=== PATIENT | female | born 1935 | race Caucasian/White ===

== ENCOUNTER 2019-08-06 17:30 | Emergency (ER) | payer MEDICARE, OTHER, SELFPAY ==
[2019-08-06 17:52] VITALS: BP 157/78; PULSE 70; RESP 18; TEMP 37.6; O2SAT 98
--- NOTE | 2019-08-06 18:01 | ED.WOUNDLAC ---
HPI - Wound/Laceration General Chief Complaint: Wound/Laceration Stated Complaint: right hand injury Time Seen by Provider: 08/06/19 18:02 Source: patient and RN notes reviewed Mode of arrival: ambulatory Limitations: no limitations History of Present Illness HPI narrative: This is an 84 years old female presented office for evaluation of dog bite prior to arrival. She just got a stray dog who was scared and accidentally bite her. Td is up-to-date. She cleaned her wound with peroxide prior to arrival. Related Data Home Medications Medication Instructions Recorded Confirmed glycopyrrolate 2 mg BID 08/06/19 08/06/19 sertraline 75 mg DAILY 08/06/19 08/06/19 ursodiol 300 mg BID 08/06/19 08/06/19 Allergies Allergy/AdvReac Type Severity Reaction Status Date / Time Shrimp AdvReac Unknown VOMITING Uncoded 08/06/19 17:43 Review of Systems Review of Systems: Narrative: CONSTITUTIONAL: Denies fever or feeling ill CARDIOVASCULAR: Denies chest pain RESPIRATORY: Denies difficulty breathing GASTROINTESTINAL: Denies nausea, vomiting SKIN: Reports dog bites to her right hand MUSCULOSKELETAL: Denies hand pain; admits to history of arthritis NEUROLOGIC: Denies lightheaded PMFSH Past Medical History Medical History (Updated 08/06/19 @ 18:24 by AARTI Madison) Biliary dyskinesia Personal history of other diseases of the digestive system Primary biliary cirrhosis Von Willebrand disease Surgical History Surgical History (Updated 08/06/19 @ 18:24 by AARTI Madison) History of hernia repair Family History Family History Mother Hypertension Other Cerebrovascular accident Diabetes mellitus Family history of malignant neoplasm Social History Social History Alcohol intake: never Gender identity (if verbalized by the patient): Female Comments At time of signature, I agree with nursing past medical, surgical, social and family history. There is no relevant family history pertinent to the presenting complaint. Exam Narrative: Exam Narrative: GENERAL: This is a well-nourished, well-developed patient, in no apparent distress. CARDIOVASCULAR: Regular rate and rhythm without murmurs, gallops, or rubs. RESPIRATORY: Clear to auscultation. Breath sounds equal bilaterally. No wheezes, rales, or rhonchi. GASTROINTESTINAL: Abdomen soft, non-tender, nondistended. Bowel sounds are active. No hepato-splenomegaly, or palpable masses. No guarding. NEURO: awake, alert, and oriented to person, place and time. There were no obvious focal neurologic abnormalities. Steady gait EXTREMITIES: right hand include fingers noted multiple tiny bite pop with a couple puncture wounds, dorsum is edematous and ecchymosis. Patient is able to make a fist and moves all of her fingers. Cap refills brisk; radius pulse intact. [place] Coma Scale Eye Opening: Spontaneous 4 [place] Coma Scale Motor: Obeys Commands 6 [place] Coma Scale Verbal: Oriented 5 Course Vital Signs Vital signs: Vital Signs Temperature 99.6 F 08/06/19 17:52 Pulse Rate 70 08/06/19 17:52 Respiratory Rate 18 08/06/19 17:52 Blood Pressure 157/78 H 08/06/19 17:52 Pulse Oximetry 98 08/06/19 17:52 Temperature 99.6 F 08/06/19 17:52 Pulse Rate 70 08/06/19 17:52 Respiratory Rate 18 08/06/19 17:52 Blood Pressure 157/78 H 08/06/19 17:52 Pulse Oximetry 98 08/06/19 17:52 MDM - Wound/Laceration MDM Narrative Medical decision making narrative: Patient is Urgent/Emergent. BP elevated due to current condition w/o HTN in PMH (Measure Met). Discharge instructions reviewed with patient, as well as provided in writing per nursing staff. The instructions also include specific and strict return/GO TO THE ER as well as f/u information. All questions have been answered, and the patient deny any further questions with discharge
== END 2019-08-06 18:23 | disposition home or self-care (01) ==
PROVIDERS: Emergency Provider Nurse Practitioner
DX: S61.451A Open bite of right hand, initial encounter (principal); K74.5 Biliary cirrhosis, unspecified; D68.0 Von Willebrand disease; K82.8 Other specified diseases of gallbladder; W54.0XXA Bitten by dog, initial encounter
CPT/HCPCS: 99213; G0463

== ENCOUNTER 2020-11-28 19:54 | Inpatient (IN) | payer MEDICARE, OTHER, SELFPAY ==
--- NOTE | ~2020-11-28 | XR_ITS ---
EXAMINATION: XR chest 2V DATE: 11/28/2020 20:45 INDICATION: Midsternal chest pain. TECHNIQUE: Frontal and lateral views of the chest were obtained. COMPARISON: CT abdomen and pelvis 11/18/2018 FINDINGS: The chest demonstrates clear lungs without pneumonia, pleural effusion, or pneumothorax. Th e heart size is normal. Pectus excavatum is noted. IMPRESSION: 1. No acute cardiopulmonary disease. Reviewed, dictated and finalized at location A.
--- NOTE | ~2020-11-28 | CT_ITS ---
EXAMINATION: CT abdomen pelvis w con DATE: 11/28/2020 21:03 INDICATION: Right upper quadrant abdominal pain. TECHNIQUE: Computed tomography (CT) of the abdomen and pelvis was performed with 100 mL Omnipaque 350 intravenous contrast. Automated exposure control and iterative reconstruction technique were employe d. The dose-length product was 502.70 mGy-cm. COMPARISON: CT abdomen and pelvis 11/18/2018 FINDINGS: The visualized portions of the lung bases demonstrate mild atelectasis. There is mild bronc hiectasis bilaterally. A calcified left lung nodule is consistent with old granulomatous disease. No pleural effusion. The heart size is normal. There are coronary artery calcifications. There are calci fications of the aortic valve. No pericardial effusion. There are cysts in the liver measuring up to 6 mm. The gallbladder, spleen, pancreas, and adrenal glands are normal. There are cysts in the kidney s measuring up to 7 mm on the left. There are no dilated loops of bowel. The appendix is not visualiz ed. There are no pathologically enlarged lymph nodes. There is no free intraperitoneal fluid. There i s a left inguinal hernia containing fat. There is severe thoracolumbar spondylosis. IMPRESSION: 1. No etiology for the patient's symptoms. Reviewed, dictated and finalized at location A.
--- NOTE | ~2020-11-28 | CT_ITS ---
EXAMINATION: CTA chest PE protocol DATE: 11/29/2020 14:42 INDICATION: Chest pain. TECHNIQUE: Computed tomography angiography (CTA) of the chest was performed with 100 mL Omnipaque-350 intravenous contrast timed to evaluate the pulmonary arteries. Coronal maximum intensity projection 3D-reconstructions were created by the technologist. Automated exposure control and iterative reconst ruction technique were employed. The dose-length product was 165.50 mGy-cm. COMPARISON: CT abdomen and pelvis 11/28/2020 FINDINGS: The lungs demonstrate mild atelectasis. There is mild emphysema. There is mild scarring in the upper lobes. There is a 5 mm nodule in right upper lobe, likely benign. Calcified bilateral lung nodules are consistent with old granulomatous disease. There is a small left pleural effusion. There is a 1.9 x 2.2 cm mass posterior to the right thyroid lobe. The heart size is normal. There are coron marcelle artery calcifications. No pericardial effusion. There is ectasia of ascending aorta measuring 4.0 cm. There is an intramural hematoma of the aorta from the origin of the left subclavian artery to th e juxtarenal aorta. The aortic arch measures up to 3.9 cm in diameter. There is a 6 mm cyst in the li theresa. There is contrast in the gallbladder. There is a 2 mm stone in left kidney. There is no pulmonar y embolus. There is severe thoracic spondylosis. There is a healing fracture of body of the sternum. IMPRESSION: 1. Acute intramural hematoma of the aorta from the origin of the left subclavian artery to at least t he juxtarenal aorta. I called this result to Erinn Marsh. 2. Small left pleural effusion. 3. 2.2 cm mass posterior to right thyroid lobe. The differential diagnosis includes thyroid nodule an d parathyroid adenoma. 4. No pulmonary embolus. Reviewed, dictated and finalized at location A. IMPRESSION: 1. Acute intramural hematoma of the aorta from the origin of the left subclavia n artery to at least the juxtarenal aorta. I called this result to Erinn davis 2. Small left pleural effusion. 3. 2.2 cm mass posterior to right thyroid lobe. The differential diagnosis incl udes thyroid nodule and parathyroid adenoma. 4. No pulmonary embolus.
--- NOTE | ~2020-11-28 | US_ITS ---
EXAMINATION: US abdomen limited EXAM DATE: 11/30/2020 12:27 INDICATION: RUQ and epigastric pain. RUQ PAIN. TECHNIQUE: Multiple grayscale and Doppler images of the abdomen right upper quadrant were obtained (geraldine y a technologist who performed the scan) and subsequently reviewed. Comparison is made to prior exami nation from 12/14/2018. FINDINGS: The pancreatic head and body are normal in appearance. The pancreatic tail is not visualized. The l iver has normal echogenicity and contour. There are no focal liver lesions identified. There is no evidence of intrahepatic biliary duct dilation. Portal venous flow was seen in the hepatopedal, nor mal direction and has normal Doppler waveform. No right-sided hydronephrosis. Common bile duct measures 4 mm, which is normal. The gallbladder is distended with borderline wall t hickening at 3 mm. No pericholecystic fluid or cholelithiasis. No sonographic Paul sign demonstrate d. IMPRESSION: Distended gallbladder with nonspecific wall thickening. This could indicate interstitial edema, chronic liver disease or chronic cholecystitis. Reviewed, dictated and finalized at location A.
--- NOTE | 2020-11-28 19:56 | ECG_ITS ---
Measurements Intervals [place] Rate: 59 P: 21 [place]: 193 QRS: -34 QRSD: 89 T: -9 QT: 392 QTc: 389 Interpretive Statements SINUS BRADYCARDIA INCOMPLETE RIGHT BUNDLE BRANCH BLOCK LOW QRS VOLTAGE IN PRECORDIAL LEADS BORDERLINE T WAVE ABNORMALITY- ANT/INF LEADS BASELINE ARTIFACT- I, II, III, AVR, AVL, AVF, V4-V6 BORDERLINE ECG Electronically Signed On 11-28-2020 20:43:24 CDT by Manny Fournier D.O.
--- NOTE | 2020-11-28 20:06 | ED.CHESTPAIN ---
HPI - Chest Pain General Chief Complaint: Chest Pain Stated Complaint: chest pain Time Seen by Provider: 11/28/20 19:56 Source: RN notes reviewed History of Present Illness HPI narrative: Patient presents emergency department from home for chest pain. Patient states pain is located in the lower chest and upper abdomen is described as a pressure sensation across the entire lower chest and upper abdomen patient states the pain began approximately 30 minutes ago while she was sitting eating. States nothing makes the pain better or worse notes mild shortness of the symptoms she denies any fevers or chills nausea vomiting diarrhea or any other symptoms states she not take anything for the pain Related Data Home Medications Medication Instructions Recorded Confirmed glycopyrrolate 2 mg PO BID 08/06/19 11/29/20 sertraline 75 mg PO DAILY 08/06/19 11/29/20 ursodiol 300 mg PO BID 08/06/19 11/29/20 Allergies Allergy/AdvReac Type Severity Reaction Status Date / Time Shrimp AdvReac Unknown VOMITING Uncoded 11/29/20 02:33 Review of Systems Review of Systems: Gen.: Denies fevers or chills ENT: Denies congestion Respiratory: Denies shortness of breath or cough CV: Reports lower chest pain GI: Reports upper abdominal pain. Nausea, emesis or diarrhea Musculoskeletal: Denies back pain or muscle pain Neuro: Denies numbness, tingling, weakness or focal weakness Skin: Denies rash Except as documented, all other systems reviewed and negative [facility] Past Medical History Medical History Biliary dyskinesia Personal history of other diseases of the digestive system Primary biliary cirrhosis Von Willebrand disease Surgical History Surgical History (Updated 08/06/19 @ 18:24 by AARTI Madison) History of hernia repair Family History Family History (Updated 11/29/20 @ 02:38 by Mirna Salas RN) Mother Hypertension Cerebrovascular accident Father Kidney disease Daughter Von Willebrand disease Other Diabetes mellitus Family history of malignant neoplasm Social History Social History Smoking packs per day: 3 Smoking cigarettes per day: 60.0 Years smoked: 30 Smoking pack-years: 90.00 Smoking status: Former smoker Alcohol intake: never Substance use: never Gender identity (if verbalized by the patient): Female Spiritual care concerns: No Exam Narrative: APPEARANCE: No acute distress, nontoxic, resting in bed HEENT: Normocephalic, atraumatic, OMM RESPIRATORY: No respiratory distress, clear to auscultation bilaterally with no rhonchi wheezing or rales CARDIOVASCULAR: RRR s murmur ABDOMINAL: Soft nondistended tender palpation epigastric and right upper quadrant no tenderness left upper quadrant, or quadrant left lower quadrant no rebound or guarding MUSCULOSKELETAl: Moves all extremities. No clubbing, cyanosis or edema. NEURO: Awake and alert. Following commands, speech normal, no focal deficits SKIN:: Warm, dry. Normal Color PSYCHIATRIC: Normal affect/mood Course Course Emergency Course: Patient had no change in pain with Tylenol and GI cocktail morphine given with some improvement of pain patient continues have tenderness in the epigastric region Called and discussed with Dr. Beauchamp presentation work-up agrees with admission at this time Discussed with patient and family results of workup and diagnosis. Discussed need for admission. Patient and family understand and agree to current treatment plan Vital Signs Vital signs: Vital Signs Temperature 97.9 F 11/28/20 20:17 Pulse Rate 63 11/28/20 20:17 Respiratory Rate 17 11/28/20 20:17 Blood Pressure 136/100 H 11/28/20 20:17 Pulse Oximetry 100 11/28/20 20:17 Temperature 97.6 F 11/29/20 04:00 Pulse Rate 63 11/29/20 04:00 Respiratory Rate 18 11/29/20 04:00 Blood Pressure 162/72 H 11/29/20 04:00 Puls
[2020-11-28] MEDS: ASPIRIN 81 MG CHEWABLE TABLET 324 MG PO (20:15)
[2020-11-28 20:17] VITALS: BP 136/100; PULSE 63; RESP 17; TEMP 36.6; O2SAT 100
[2020-11-28 20:20] LABS: Basophils Absolute Auto 0.1 K/mm3 (0.0-0.1); Eosinophils Absolute Auto 0.2 K/mm3 (0-0.3); Eosinophils Percent Auto 3.1 % (0-4.4); Hematocrit 41.6 % (37.0-47.0); Hemoglobin 13.4 g/dL (12.0-15.0); Immature Granulocyte Absolute 0.01 K/mm3 (0.00-0.031); Immature Granulocyte Percent A 0.1 % (0-0.5); Lymphocytes Absolute Auto 2.71 K/mm3 (0.9-3.2); Lymphocytes Percent Auto 39.8 % (18.3-44.2); Mean Corpuscular HGB Conc 32.2 g/dl (32-36); Mean Corpuscular Hemoglobin 30.5 pg (26-34); Mean Corpuscular Volume 94.8 fl (80-100); Mean Platelet Volume 10.8 fl (7.4-10.4); Monocytes Absolute Auto 0.6 K/mm3 (0.1-0.6); Monocytes Percent Auto 9.3 % (2.6-8.5); Neutrophils Absolute Auto 3.2 K/mm3 (1.3-6.7); Neutrophils Percent Auto 46.7 % (45.5-73.1); Platelet Count Result 250 k/mm3 (150-375); Red Blood Count 4.39 M/mm3 (4.2-5.4); Red Cell Distribution Width 12.8 % (11.5-14.5); White Blood Count 6.8 K/mm3 (4.5-10.0)
[2020-11-28 20:39] LABS: NT Pro B Type Natriuretic Pept 358 pg/mL (5-100)
[2020-11-28 20:41] LABS: INR 0.9
[2020-11-28 20:42] LABS: Alanine Aminotransferase 26 U/L (4-35); Albumin Level 4.3 g/dL (3.5-5.1); Alkaline Phosphatase 189 U/L (38-126); Anion Gap 7 mmol/L (8-16); Aspartate Amino Transferase 40 U/L (14-36); Bilirubin,Total 0.6 mg/dL (0.2-1.3); Blood Urea Nitrogen 18 mg/dL (7-17); Calcium 10.3 mg/dL (8.4-10.2); Carbon Dioxide 27 mmol/L (22-30); Chloride 98 mmol/L (98-107); Estimated CRCL calculation 36 ml/min; Estimated Glomerular Filt Rate > 60; Glucose 115 mg/dL (65-110); Lipase 185 U/L (23-300); Partial Thromboplastin Time 37.1 SECONDS (22.3-36.8); Potassium 4.2 mmol/L (3.4-5.0); Sodium 132 mmol/L (137-145)
[2020-11-28 20:47] LABS: Troponin I < 0.012 ng/mL (0.000-0.034)
[2020-11-28 21:58] LABS: Lactic Acid Reflex 0.8 mmol/L (0.7-2.1)
[2020-11-28 22:00] VITALS: BP 141/86; PULSE 71; RESP 18; O2SAT 96
--- NOTE | 2020-11-28 22:36 | ECG_ITS ---
Measurements Intervals [place] Rate: 66 P: 42 RI: 208 QRS: -40 QRSD: 94 T: 1 QT: 423 QTc: 443 Interpretive Statements SINUS RHYTHM INCOMPLETE RIGHT BUNDLE BRANCH BLOCK LOW QRS VOLTAGE IN PRECORDIAL LEADS BASELINE ARTIFACT- I, II, III, AVR, AVL, AVF, V1-V6 BORDERLINE ECG Electronically Signed On 11-29-2020 7:22:12 CDT by Manny Fournier D.O.
[2020-11-28] MEDS: MORPHINE SULFATE (*CRX) 2 MG/ML INJ IV PUSH (23:19)
[2020-11-28 23:41] LABS: Add Urine Microscopic? YES; Appearance Urine Clear (Clear); Bacteria Urine Trace /hpf; Bilirubin Urine Negative (Negative); Blood Urine Negative (Negative); Color Urine Straw (Yellow); Glucose Urine UA Negative (Negative); Ketones Urine 1+ mg/dL (Negative); Leukocyte Esterase Ur Trace LEU/UL (Negative); Nitrate Urine Negative (Negative); Protein Urine Negative (Negative); Squamous Epithelial Cell Urine Many /hpf (Few); Urobilinogen Urine Negative mg/dL (<2.0)
[2020-11-28 23:44] LABS: Specific Grav Ur > 1.060 (1.001-1.035)
[2020-11-29] VITALS (16 sets, daily range): BP systolic 109–175; BP diastolic 58–109; PULSE 61–87; RESP 12–20; TEMP 35.9–37; O2SAT 92–100; BMI 24.7
[2020-11-29] MEDS: MORPHINE SULFATE (*CRX) 2 MG/ML INJ IV PUSH ×5 (00:01→20:51)
[2020-11-29 00:20] LABS: Troponin I < 0.012 ng/mL (0.000-0.034)
--- NOTE | 2020-11-29 02:09 | PC.NURSE ---
This patient, Abbey Boggs, was admitted to IMU Room 204-01 on 11/29/20 at 0210. Patient family oriented to hospital policies and general routines including ID bracelet, bed and alarms, visiting hours, pain management, procedures, bathroom and other care routines, personal items, smoking policy, room service/diet, and visiting hours. Information on how to activate the Rapid Response Team has been discussed. Patient/Family are encouraged to report perceived risks to care and to ask questions if they do not understand what they are told or what they should do.
[2020-11-29] MEDS: SODIUM CHLORIDE 0.9% IV 1,000 ML 100 ML IV CONT (02:40)
[2020-11-29 03:02] LABS: Troponin I < 0.012 ng/mL (0.000-0.034)
[2020-11-29 05:34] LABS: Basophils Absolute Auto 0.1 K/mm3 (0.0-0.1); Basophils Percent Auto 0.6 % (0.2-1.2); Eosinophils Percent Auto 0.1 % (0-4.4); Hematocrit 40.3 % (37.0-47.0); Hemoglobin 13.3 g/dL (12.0-15.0); Immature Granulocyte Absolute 0.02 K/mm3 (0.00-0.031); Immature Granulocyte Percent A 0.2 % (0-0.5); Lymphocytes Absolute Auto 1.02 K/mm3 (0.9-3.2); Lymphocytes Percent Auto 12.5 % (18.3-44.2); Mean Corpuscular Hemoglobin 30.6 pg (26-34); Mean Corpuscular Volume 92.6 fl (80-100); Mean Platelet Volume 11.4 fl (7.4-10.4); Monocytes Absolute Auto 0.6 K/mm3 (0.1-0.6); Monocytes Percent Auto 7.7 % (2.6-8.5); Neutrophils Absolute Auto 6.5 K/mm3 (1.3-6.7); Neutrophils Percent Auto 78.9 % (45.5-73.1); Platelet Count Result 206 k/mm3 (150-375); Red Blood Count 4.35 M/mm3 (4.2-5.4); Red Cell Distribution Width 12.2 % (11.5-14.5); White Blood Count 8.2 K/mm3 (4.5-10.0)
--- NOTE | 2020-11-29 05:36 | PM.IMHP ---
H&P: HPI History of Present Illness Date/Time: 11/29/20 05:36 Chief Complaint: Abdominal pain Narrative: This is an 85-year-old female with past medical history significant for over reactive bladder, depression. The patient was brought to the emergency room due to abdominal pain in the right upper quadrant area and epigastric area that happened while eating, the pain is nonradiating it is pressure-like, there was no nausea, no vomiting, no diarrhea, no diaphoresis, no shortness of breath ,no syncope or near syncope, no fevers, no rigors, no chills ,no cough or sputum production, no chest pain with activity no PND no orthopnea no calf pain although she had been to the urgent care earlier in the week due to right lower extremity swelling. A CT of abdomen and pelvis did not show any acute abnormalities and a chest x-ray was negative for any acute cardiopulmonary findings. Troponins x2 have been non detectable, her pain responded to morphine and received aspirin as well. Patient has been placed in observation. Review of Systems Review of Systems: Right upper quadrant pain and epigastric pain with food ingestion. Constitutional: Constitutional: Denies chills, Denies fatigue, Denies fever(s) and Denies malaise Eyes: Eyes: Denies change in vision ENT: Denies dysphagia, Denies dizziness, Denies nasal congestion, Denies nasal discharge, Denies nasal obstruction and Denies odynophagia Cardiovascular: Cardiovascular: Denies irregular heart rhythm, Denies lightheadedness, Denies radiating jaw, neck or arm pain, Denies palpitations, Denies dyspnea and Denies orthopnea Respiratory: Respiratory: Denies cough and Denies dyspnea Gastrointestinal: Gastrointestinal: Reports abdominal pain (Epigastric and right upper quadrant), Denies GI cramping, Denies dyspepsia, Denies heartburn, Denies diarrhea, Denies nausea and Denies vomiting Genitourinary: Genitourinary: Reports no additional female genitourinary complaints Musculoskeletal: Musculoskeletal: Reports no additional musculoskeletal complaints Integumentary/Breasts: Skin/Breast: Reports system reviewed and no additional complaints, except as docu Neurologic: Reports system reviewed and no additional complaints, except as documented Psychiatric: Psychiatric: Reports no additional psychiatric complaints Endocrine: Endocrine: Reports no additional endocrine complaints Hematologic/Lymphatic: Hematologic/Lymphatic: Reports no additional hematologic/lymphatic complaints Allergic/Immunologic: Allergic/Immunologic: Reports no additional allergic/immunologic complaints [facility] Past Medical History Medical History (Updated 11/29/20 @ 06:01 by Maurilio Tinoco MD) Biliary dyskinesia Personal history of other diseases of the digestive system Primary biliary cirrhosis Von Willebrand disease Surgical History Surgical History (Updated 08/06/19 @ 18:24 by AARTI Madison) History of hernia repair Family History Family History (Updated 11/29/20 @ 02:38 by Mirna Salas RN) Mother Hypertension Cerebrovascular accident Father Kidney disease Daughter Von Willebrand disease Other Diabetes mellitus Family history of malignant neoplasm Social History Social History Smoking packs per day: 3 Smoking cigarettes per day: 60.0 Years smoked: 30 Smoking pack-years: 90.00 Smoking status: Former smoker Alcohol intake: never Substance use: never Gender identity (if verbalized by the patient): Female Spiritual care concerns: No Meds Home Medications and Allergies Home Medications Medication Instructions Recorded Confirmed Type glycopyrrolate 2 mg PO BID 08/06/19 11/29/20 History sertraline 75 mg PO DAILY 08/06/19 11/29/20 History ursodiol 300 mg PO BID 08/06/19 11/29/20 History Allergies Allergy/AdvReac Type Severity Reaction Status Date / Time Shrimp AdvReac Unknown VOMITING Uncoded 11/29/20 02:
[2020-11-29 05:49] LABS: Alanine Aminotransferase 25 U/L (4-35); Albumin Level 3.9 g/dL (3.5-5.1); Alkaline Phosphatase 170 U/L (38-126); Anion Gap 9 mmol/L (8-16); Aspartate Amino Transferase 36 U/L (14-36); Bilirubin,Total 0.4 mg/dL (0.2-1.3); Blood Urea Nitrogen 16 mg/dL (7-17); Calcium 9.3 mg/dL (8.4-10.2); Carbon Dioxide 24 mmol/L (22-30); Chloride 100 mmol/L (98-107); Estimated Glomerular Filt Rate > 60; Glucose 115 mg/dL (65-110); Lipase 81 U/L (23-300); Potassium 3.7 mmol/L (3.4-5.0); Sodium 133 mmol/L (137-145)
[2020-11-29] MEDS: SUCRALFATE 1 GM TABLET PO ×4 (09:06→21:43)
[2020-11-29] MEDS: PANTOPRAZOLE SODIUM IV 40 MG VIAL IV PUSH ×2 (09:08→21:43)
[2020-11-29] MEDS: SERTRALINE HCL 25 MG TABLET 75 MG PO (09:09)
[2020-11-29] MEDS: ursodioL 300 MG CAPSULE PO ×2 (09:09→17:17)
[2020-11-29 10:59] LABS: D Dimer 1.35 ug/mL (<0.48)
--- NOTE | 2020-11-29 15:46 | PM.IMPN ---
Progress Note: A&P Assessment and Plan (1) Abdominal pain: Code(s): R10.9 - Unspecified abdominal pain Status: Acute Assessment and Plan: Placed in observation Paul negative on physical exam Morphine p.r.n. Right upper quadrant ultrasound CT of abdomen and pelvis reviewed (2) Biliary dyskinesia: Code(s): K82.8 - Other specified diseases of gallbladder Status: Acute Assessment and Plan: Patient is known to have biliary dyskinesia Supportive care Might be contributing to her pain Continue glycopyrrolate (3) Primary biliary cirrhosis: Code(s): K74.3 - Primary biliary cirrhosis Status: Acute Assessment and Plan: Follow-up in the outpatient setting (4) Von Willebrand disease: Code(s): D68.0 - Von Willebrand's disease Status: Acute Assessment and Plan: Patient is on no anticoagulation. Time Spent With Patient Time with patient: 25 - 35 minutes Subjective Date/time seen: 11/29/20 15:46 Interval history: Date of Service 11/29/20: Review of Systems Review of Systems: All systems reviewed & are unremarkable except as noted in HPI and below Exam Narrative: General: 85-year-old woman laying flat in bed. Appears comfortable. In no acute distress. Skin: No jaundice or cyanosis. Good skin turgor. Neck: Full range of motion. Supple. Nontender. Respiratory: Lungs are clear to auscultation bilaterally. No bony chest wall tenderness. Cardiovascular: The heart has a regular rate and rhythm without murmur. No carotid bruits. Lower extremities: No lower extremity edema. Distal pulses are easily palpated. No calf tenderness to palpation. Gastrointestinal: The abdomen is soft, nontender and nondistended with active bowel sounds. Psychiatric: Lucid and oriented. Memory intact. Neurologic: No focal deficits. Speech is clear. No facial drooping. Objective Data Vital Signs Vital Signs: Vital Signs - 24 hr 11/28/20 20:17 11/28/20 22:00 11/29/20 00:00 Temperature 97.9 F Pulse Rate 63 71 66 Respiratory Rate 17 18 18 Blood Pressure 136/100 H 141/86 H 175/89 H Pulse Oximetry 100 96 98 11/29/20 02:10 11/29/20 04:00 11/29/20 06:00 Temperature 96.7 F L 97.6 F Pulse Rate 87 63 65 Respiratory Rate 16 18 Blood Pressure 130/109 H 162/72 H Pulse Oximetry 100 100 11/29/20 08:00 11/29/20 11:49 Temperature 98 F 98 F Pulse Rate 66 61 Respiratory Rate 12 14 Blood Pressure 167/66 H 148/70 H Pulse Oximetry 95 99 Intake/Output Intake/Output: Intake & Output 11/26/20 11/27/20 11/28/20 11/29/20 23:59 23:59 23:59 23:59 Intake Total 100 100 Output Total 1300 Balance 100 -1200 Meds/Results Medications: Active Medications Generic Name Dose Route Start Last Admin Trade Name Freq PRN Reason Stop Dose Admin Sodium Chloride 1,000 mls @ 55 mls/hr 11/29/20 00:30 11/29/20 02:40 Normal Saline Iv IV CONT 100 mls/hr .[id number] ANGELITA Administration Acetaminophen 1,000 mg in 100 mls @ 400 mls/hr 11/29/20 08:04 11/29/20 10:34 Ofirmev 1,000 Mg Ivpb IVPB 11/30/20 08:03 Infused Q6H PRN Infusion Pain Rated 1-5 Nicardipine/Sodium Chloride 20 mg in 200 mls @ 50 mls/hr 11/29/20 15:45 Cardene 20 Mg/200 Ml Ns IV CONT .Q4H ANGELITA 5 MG/HR Morphine Sulfate 2 mg 11/29/20 08:05 11/29/20 13:28 Morphine Sulfate (*Crx) 2 Mg/Ml Inj IV PUSH 2 mg Q4H PRN Administration Pain Rated 6-10 Pantoprazole Sodium 40 mg 11/29/20 09:00 11/29/20 09:08 Pantoprazole Sodium Iv 40 Mg Vial IV PUSH 40 mg Q12HR ANGELITA Administration Sertraline HCl 75 mg 11/29/20 09:00 11/29/20 09:09 Sertraline Hcl 25 Mg Tablet PO 75 mg DAILY ANGELITA Administration Sucralfate 1 gm 11/29/20 08:40 11/29/20 13:28 Sucralfate 1 Gm Tablet PO 1 gm ACHS ANGELITA Administration Ursodiol 300 mg 11/29/20 09:00 11/29/20 09:09 Ursodiol 300 Mg Capsule PO 300 mg BID ANGELITA Administration Radiology Results:
[2020-11-29] MEDS: niCARdipine 20 MG/200 ML 20 MG/200 ML BAG 50 MG IV CONT ×3 (16:01→20:53)
--- NOTE | 2020-11-29 16:02 | PM.TDS ---
Transfer Discharge Sum: Prov Provider Date of admission: 11/29/20 00:30 Primary care physician: Bhavesh Gutierrez, Admitting clinician: Maurilio Tinoco MD Attending physician on discharge: Cody Ryder Discharging clinician: Erinn Marsh Receiving physician/facility: [facility] under Dr. Foss DS: Admitting Diagnosis Admitting Diagnosis Chest pain DS: Discharge Diagnosis Discharge Diagnosis (1) Acute thoracic aortic dissection: Code(s): I71.01 - Dissection of thoracic aorta Status: Acute Assessment and Plan: The patient is an 85-year-old woman with a history of von Willebrand disease, who presented to the emergency room with sudden, midsternal, ?crushing? pain to her chest. Patient states she was sitting on her couch after eating dinner around 7:00 p.m. when the sudden pain occurred. She has never felt similar symptoms. She denies any shortness of breath, nausea, vomiting, abdominal pain. Pain continued, and became concerned so she came to the emergency room for further evaluation. Initial vitals showed elevated blood pressure 136/100, heart rate 63, respiratory rate 17, afebrile, normal oxygenation on room air. Initial labs showed normal CBC with differential, normal PT/INR, slight hyponatremia at 132, normal renal function, slight elevation of AST, alk-phos, BNP 358. Negative troponin x3. Urinalysis showing no signs of UTI, contamination. Initial chest x-ray showed no acute cardiopulmonary disease. CT abdomen pelvis was completed showing no etiology for patient's symptoms. After further discussion with the patient she told me she had not been very active due to right knee pain. With her chest pain symptoms I ordered a D-dimer which was elevated at 1.35. I ordered a stat CTA of her chest which showed Acute intramural hematoma of the aorta from the origin of the left subclavian artery to at least the juxtarenal aorta. Consistent with a type B aortic dissection. I called [facility] and talk to their fruit or nut crops farm manager Dr. Foss accepted the patient in admission. While waiting for a bed to become available goal is to keep her blood pressure between 100 and 120 systolic. Patient was started on an IV nicardipine drip. The patient was moved to the ICU. Nicardipine drip is being titrated and her most recent blood pressure at 1800 was 110/68. Currently waiting for a bed then the patient can safely be transferred. She is stable at this time and closely being monitored in our ICU. CT Chest showed 2.2 cm mass posterior to right thyroid lobe. The differential diagnosis includes thyroid nodule and parathyroid adenoma. Further evaluation at [facility] or upon discharge with PCP. Critical care time of 75 minutes spent evaluating the patient, talking to the nurse, talking to my attending provider, talking to the fruit or nut crops farm manager, talking to [facility] transfer line, ordering labs, reviewing labs, calling family members about the severity of her status and being transferred, rechecking the patient in talking more with her. (2) Chest pain: Code(s): R07.9 - Chest pain, unspecified Status: Acute (3) Von Willebrand disease: Code(s): D68.0 - Von Willebrand's disease Status: Acute (4) Thyroid mass: Code(s): E07.9 - Disorder of thyroid, unspecified Status: Acute Transfer Discharge Sum: Med Medications Active and Home Medications: Home Medications glycopyrrolate 2 mg PO BID 08/06/19 [History Confirmed 11/29/20] sertraline 75 mg PO DAILY 08/06/19 [History Confirmed 11/29/20] ursodiol 300 mg PO BID 08/06/19 [History Confirmed 11/29/20] Active Medications Sodium Chloride (Normal Saline Iv) 1,000 mls @ 55 mls/hr IV CONT .[id number] [facility] Last Admin: 11/29/20 02:40 Dose: 100 mls/hr Documented by: Acetaminophen (Ofirmev 1,000 Mg Ivpb) 1,000 mg in 100 mls @ 400 mls/hr IVPB Q6H PRN PRN Reason: Pain Rated 1-5 Stop: 11/30/20 08:03 Last Infusion: 11/29/20 10:34 Dose: Infused D
[2020-11-30] VITALS (9 sets, daily range): BP systolic 90–149; BP diastolic 48–69; PULSE 70–89; RESP 16–21; TEMP 36.6–37.2; O2SAT 92–100
[2020-11-30] MEDS: niCARdipine 20 MG/200 ML 20 MG/200 ML BAG 100 MG IV CONT (01:42)
[2020-11-30] MEDS: MORPHINE SULFATE (*CRX) 2 MG/ML INJ IV PUSH ×2 (01:43→07:45)
[2020-11-30] MEDS: niCARdipine 20 MG/200 ML 20 MG/200 ML BAG 70 MG IV CONT (03:11)
[2020-11-30] MEDS: SERTRALINE HCL 25 MG TABLET 75 MG PO (07:48)
[2020-11-30] MEDS: SUCRALFATE 1 GM TABLET PO (07:48)
[2020-11-30] MEDS: ursodioL 300 MG CAPSULE PO (07:48)
[2020-11-30] MEDS: PANTOPRAZOLE SODIUM IV 40 MG VIAL IV PUSH (07:48)
[2020-11-30] MEDS: niCARdipine 20 MG/200 ML 20 MG/200 ML BAG 75 MG IV CONT (09:40)
--- NOTE | 2020-11-30 09:46 | WPDCNINT ---
Assessment and Plan Assessment and plan (1) Acute thoracic aortic dissection: Code(s): I71.01 - Dissection of thoracic aorta Status: Acute Assessment and Plan: Patient presented with lower chest pain and upper abdomen pain, -CTA chest 11/29/2020: Showed type B aortic dissection, no pulmonary embolism -will maintain systolic blood pressures between 100-120 mmHg. On nicardipine infusion (2) Chest pain: Code(s): R07.9 - Chest pain, unspecified Status: Acute Assessment and Plan: Continues to have chest pain, controlled with pain medication (3) Von Willebrand disease: Code(s): D68.0 - Von Willebrand's disease Status: Acute (4) Primary biliary cirrhosis: Code(s): K74.3 - Primary biliary cirrhosis Status: Acute Assessment and Plan: CT abdomen on on 11/28/2020 showed cysts in the liver measuring up to 6 mm. Gallbladder, spleen, pancreas, adrenal glands are normal. Cysts in the kidneys measuring up to 7 mm on the left side. No dilated bowel loops. There is no free intraperitoneal fluid. Left inguinal hernia containing fat. Severe thoracolumbar spondylosis (5) Biliary dyskinesia: Code(s): K82.8 - Other specified diseases of gallbladder Status: Acute Assessment and Plan: Patient has a past medical history (6) Thyroid mass: Code(s): E07.9 - Disorder of thyroid, unspecified Status: Acute Assessment and Plan: CTA chest showed 2.2 cm mass posterior to the right thyroid lobe differential diagnosis includes thyroid nodule and parathyroid adenoma. -will check TSH, T3, T4, thyroid peroxidase antibodies Additional Plan Discussed with patient updated with her condition a. She is aware that she bed at [facility] transferring therefore vascular consult for her type B aortic dissection. Code status: Full code Critical care time spent: 43 minute This dictation may have been done utilizing a voice recognition system. Attempts have been made to correct errors. However, there may be uncorrected grammatical, spelling, and recognition errors present. Due to a high probability of clinically significant, life threatening deterioration, the patient required my highest level of preparedness to intervene emergently and I personally spent this critical care time directly and personally managing the patient. This critical care time included obtaining a history; examining the patient; pulse oximetry; ordering and review of studies; arranging urgent treatment with development of a management plan; evaluation of patient's response to treatment; frequent reassessment; and discussions with other providers. It was exclusive of separately billable procedures and treating other patients and teaching time. Please see Assessment and Plan section and the rest of the note for further information on patient assessment and treatment [employer] Sales[employer] Consult Note Consult date: 11/30/20 Time Seen: 07:05 Reason for consult: Type B aortic dissection HPI: Abbey Boggs is a 85 year old female with past medical history of biliary dyskinesia, primary biliary cirrhosis, Willebrand's disease presented the ED on 11/28/2020 with complains of chest pain, located in the lower chest in the upper abdomen and described as a pressure sensation across the entire lower chest and upper abdomen. No aggravating or relieving factors were noted. Did complain of mild shortness of breath but denies any nausea, vomiting, fevers, chills, diarrhea. Patient had a CTA since her D-dimer was elevated, which showed a type B aortic dissection. The hospitalist had already called [facility] which she was accepted awaiting a bed, they recommended getting her systolic blood pressures between 100-[address] Foss is the excepting physician. 11/30/2020: Patient seen and examined this morning. Patient has been having the chest pain overnight, requiring frequent pain medication with mo
--- NOTE | 2020-11-30 17:43 | PM.IMPN ---
Progress Note: A&P Assessment and Plan (1) Acute thoracic aortic dissection: Code(s): I71.01 - Dissection of thoracic aorta Status: Acute Assessment and Plan: The patient is an 85-year-old woman with a history of von Willebrand disease, who presented to the emergency room with sudden, midsternal, ?crushing? pain to her chest. Patient states she was sitting on her couch after eating dinner around 7:00 p.m. when the sudden pain occurred. She has never felt similar symptoms. She denies any shortness of breath, nausea, vomiting, abdominal pain. Pain continued, and became concerned so she came to the emergency room for further evaluation. Initial vitals showed elevated blood pressure 136/100, heart rate 63, respiratory rate 17, afebrile, normal oxygenation on room air. Initial labs showed normal CBC with differential, normal PT/INR, slight hyponatremia at 132, normal renal function, slight elevation of AST, alk-phos, BNP 358. Negative troponin x3. Urinalysis showing no signs of UTI, contamination. Initial chest x-ray showed no acute cardiopulmonary disease. CT abdomen pelvis was completed showing no etiology for patient's symptoms. After further discussion with the patient she told me she had not been very active due to right knee pain. With her chest pain symptoms I ordered a D-dimer which was elevated at 1.35. I ordered a stat CTA of her chest which showed Acute intramural hematoma of the aorta from the origin of the left subclavian artery to at least the juxtarenal aorta. Consistent with a type B aortic dissection. I called [facility] and talk to their scabbler Dr. Foss accepted the patient in admission. While waiting for a bed to become available goal is to keep her blood pressure between 100 and 120 systolic. Patient was started on an IV nicardipine drip. The patient was moved to the ICU. Nicardipine drip is being titrated and her most recent blood pressure at 1800 was 110/68. Currently waiting for a bed then the patient can safely be transferred. She is stable at this time and closely being monitored in our ICU. CT Chest showed 2.2 cm mass posterior to right thyroid lobe. The differential diagnosis includes thyroid nodule and parathyroid adenoma. Further evaluation at [facility] or upon discharge with PCP. patient was evaluated and remains stable on IV nicardipine drip. Bed was available at [facility] and hence transfer was initiated today (2) Chest pain: Code(s): R07.9 - Chest pain, unspecified Status: Acute Assessment and Plan: see above (3) Von Willebrand disease: Code(s): D68.0 - Von Willebrand's disease Status: Acute (4) Thyroid mass: Code(s): E07.9 - Disorder of thyroid, unspecified Status: Acute Subjective Date/time seen: 11/30/20 17:43 Interval history: complains of intermittent chest pain denies any shortness of breath nausea vomiting abdominal pain no fever chills Review of Systems Review of Systems: All systems reviewed & are unremarkable except as noted in HPI and below Exam Narrative: General: comfortable. In no acute distress. Skin: No jaundice or cyanosis. Good skin turgor. Neck: Full range of motion. Supple. Respiratory: Lungs are clear to auscultation bilaterally. No wheezing, rales or rhonchi. No reproducible chest wall tenderness. Cardiovascular: The heart has a regular rate and rhythm without murmur. Lower extremities: No lower extremity edema. Distal pulses are easily palpated. No calf tenderness to palpation. Gastrointestinal: The abdomen is soft, nontender and nondistended with active bowel sounds. Psychiatric: Lucid and oriented. Memory intact. Neurologic: No focal deficits. Speech is clear. No facial drooping. Objective Data Vital Signs Vital Signs: Vital Signs - 24 hr 11/29/20 18:00 11/29/20 20:00 11/29/20 20:53 Temperature 98.4 F Pulse Rate 73 69 70 Respiratory Rate 14 18 B
== END 2020-11-30 11:45 | disposition short-term general hospital (02) | DRG 300 ==
LOC: ANHED 20:40 → ANHIMU 11-29 01:11 → ANHICU 11-29 15:59
PROVIDERS: Physician Assistant; Admitting Provider Internal Medicine; Emergency Provider Emergency Medicine; PCP Internal Medicine; Visit Provider Internal Medicine
DX: I71.01 Dissection of thoracic aorta (principal); D68.0 Von Willebrand disease; R07.9 Chest pain, unspecified; K82.8 Other specified diseases of gallbladder; K74.3 Primary biliary cirrhosis; E07.9 Disorder of thyroid, unspecified; Z87.891 Personal history of nicotine dependence; Z79.899 Other long term (current) drug therapy
CPT/HCPCS: 36415; 71046; 71275; 74177; 76705; 80053; 81001; 83605; 83690; 83880; 84484; 85025; 85380; 85610; 85730; 93005; 96361; 96365; 96366; 96375; 96376; 99285; A9270; C9113; G0378; J0131; J2270; J7030; Q9967

== ENCOUNTER 2021-09-28 15:30 | Outpatient (RCR) | payer MEDICARE, OTHER, SELFPAY ==
--- NOTE | 2021-08-29 12:47 | STOPEVAL ---
Thank you for referring Abbey Boggs to [facility].? The patient is scheduled to be seen for therapy? 2x/week for 4 weeks. Please review, sign, date and return this plan of care ASHLEY. I agree with and certify that the following plan of care is medically necessary. Referring Physician Date Attending Provider: Erasmo Price Therapy Assessment Status Assessment Status Assessment Status Evaluation Outpatient Past Medical History Neurological History Hx Neurological Disorders No Significant History Cardiovascular History Hx Cardiac Disorders No Significant History Respiratory History Hx Respiratory Disorders No Significant History Gastrointestinal History Hx Cirrhosis Yes: hereditary Hx Colitis Yes Hx Gall Bladder Disease Yes Hx Gastroesophageal Reflux Disease Yes Hx Hernia Yes: repaired Hx Irritable Bowel Yes Genitourinary History Hx Bladder Surgery Yes: lift Musculoskeletal History Hx Arthritis Yes Hematological History Hx Other Hematological Disorders Yes: von willebrand Endocrine History Hx Endocrine Disorders No Significant History HEENT History Hx Cataracts Yes: destinee removed Integumentary History Hx Shingles Yes Psychosocial History Hx Anxiety Yes Hx Depression Yes Pain History History of Any Previous or Ongoing No Significant History Instance of Pain Anesthesia History Hx Anesthesia Reactions No Significant History Pain Assessment Timing of Pain Assessment Timing of Pain Assessment Assessment Self Report Self Report Pain Level 0 Pain Score Pain Score 0: Self Report Cognitive Evaluation Orientation/Memory Assessment Immediate Memory 80 Query Text:% Accuracy Recent Memory 90 Query Text:% Accuracy Remote Memory 100 Query Text:% Accuracy Prospective Memory 100 Query Text:% Accuracy Temporal Orientation 90 Query Text:% Accuracy Spatial/Environmental Orientation 100 Query Text:% Accuracy Overall Orientation and Memory Mild Deficits Problem Solving Simple Problem Solving: Percent of 100 Accuracy 0-100 (%) Complex Problem Solving: Percent of 100 Accuracy 0-100 (%) Overall Problem Solving Skills No Impairment Thought Organization Sequencing: Percent of Accuracy 0-100 (% 75 ) Categorizing: Percent of Accuracy 0-100 100 (%) Functional Math: Percent of Accuracy 0- 80 100 (%) Functional Reading: Percent of Accuracy 100 0-100 (%) O
--- NOTE | 2021-08-29 13:11 | OTOPEVAL ---
OCCUPATIONAL THERAPY EVALUATION REPORT AND DISCHARGE SUMMARY 08/29/21 Patient referred to outpatient OT with dx of hip fracture that occurred x1 month ago. She has returned home from rehab and has returned to her prior level of function with ADLs and house tasks - independent. She identifies no difficulties at this time. She is intact and normal strength. No further skilled OT indicated at this time. Thank you for referring Abbey Boggs to [facility].? Please review, sign, date and return this D/C Note ASHLEY. I agree with and certify that the following plan of care is medically necessary. Referring Physician Date Referring Provider: DO Luis YbarraOT Outpatient Evaluation Start: 08/29/21 12:37 Outpatient Past Medical History Neurological History Hx Neurological Disorders No Significant History Cardiovascular History Hx Cardiac Disorders No Significant History Respiratory History Hx Respiratory Disorders No Significant History Gastrointestinal History Hx Cirrhosis Yes: hereditary Hx Colitis Yes Hx Gall Bladder Disease Yes Hx Gastroesophageal Reflux Disease Yes Hx Hernia Yes: repaired Hx Irritable Bowel Yes Genitourinary History Hx Bladder Surgery Yes: lift Musculoskeletal History Hx Arthritis Yes Hematological History Hx Other Hematological Disorders Yes: von willebrand Endocrine History Hx Endocrine Disorders No Significant History HEENT History Hx Cataracts Yes: destinee removed Integumentary History Hx Shingles Yes Psychosocial History Hx Anxiety Yes Hx Depression Yes Pain History History of Any Previous or Ongoing No Significant History Instance of Pain Anesthesia History Hx Anesthesia Reactions No Significant History Evaluation Information Problem Diagnosis Avulsion fx of right greater trochanter Onset 07/31/21 Cause fall Subjective Information Patient reports being s/p Query Text:As Reported By Patient/ inpatient rehab (~1 week stay) Family . She discharged back home where she lives alone. She reports no difficulties with ADLs, cooking, laundry, and some cleaning. She states she has not returned to driving yet. She has an UE HEP from rehab that she does with 2 lb. weights. Prior Level of Function Activity Level (Last 3 Months) Hand Dominance Right Activity of Daily Living Ability Independent Indoor/Home Mobility Independent Community Mobility Independent Stairs
--- NOTE | 2021-08-29 14:34 | PTOPEVAL ---
PHYSICAL THERAPY INITIAL EVALUATION. Thank you for referring Abbey Boggs to [facility].? The patient is scheduled to be seen for therapy? 1x/week for 4 weeks. Please review, sign, date and return this plan of care ASHLEY. I agree with and certify that the following plan of care is medically necessary. Referring Physician Date Attending Provider: Erasmo Price *PT Outpatient Evaluation Start: 08/29/21 Evaluation Information Diagnosis Avulsion fx of right greater trochanter Onset 07/31/21 Subjective Information Pt reports she fell and broke Query Text:As Reported By Patient/ her hip on 07/31/21. Patient Family reports being s/p inpatient rehab (~1 week stay). She discharged back home where she lives alone. Pt states she would like to get rid of her walker eventually. She states her balance is not great but it never has been good. Pt reports hip discomfort , she states when she gets this feeling she goes to take a break and gets back to it when shes ready. Pain Assessment Self Report Pain Assessment Right Hip(s) Reported Pain Level 0 Pain Description Aching Greatest Pain Intensity 0 Lower Extremity Range of Motion General Lower Extremity Range of Motion WFL/Left,WFL/Right Gross Lower Extremity Range of Motion destinee hip flexion ~125deg Comments destinee hip extension limited Lower Extremity Muscle Strength Testing General Lower Extremity Strength WFL/Left,WFL/Right Gross Lower Extremity Strength L hip flexion 4+/5 R hip flexion 4/5 destinee knee flexion/extension 4+/5 unable to hold hip abduction test position destinee ~2-/5 able to perform 1 glute bridge before loss of hip height Balance Assessment Timed Up and Go Test (TUG) (Seconds) 16 Assistive Devices None 5 Time Sit to Stand Time in Seconds 22 5 Time Sit to Stand Comments without the use of UEs Gait Assessment Ambulation Assistive Devices Walker, Wheeled Gait Pattern Antalgic Gait Gait Pattern Observed Decreased Stride Length - Left ,Trunk Lateral Lean - Right 2 Minute Walk Total Distance Walked (feet) 290 2 Minute Walk Gait Speed Score (feet/sec) 2.41 2 Minute Walk Test Comments with wheeled walker Stair Climbing Assessment Stair Cli
--- NOTE | 2021-09-28 15:20 | PTOPEVAL ---
PHYSICAL THERAPY PROGRESS REPORT AND DISCHARGE SUMMARY. Thank you for referring Abbey Boggs to [facility].? The patient is to be discharged from skilled physical therapy services at this time. Please review, sign, date and return this plan of care ASHLEY. I agree with and certify that the following plan of care is medically necessary. Referring Physician Date Attending Provider: Erasmo Price Evaluation Information Diagnosis Avulsion fx of right greater trochanter Onset 07/31/21 Subjective Information Pt states she is getting Query Text:As Reported By Patient/ around just time, she is able Family to go up/down the stairs without issues. She reports decreased speed to activities to focus on her safety. Pain Assessment Pain Score 0: Self Report Lower Extremity Range of Motion General Lower Extremity Range of Motion WFL/Left,WFL/Right Gross Lower Extremity Range of Motion destinee hip flexion ~125deg Comments destinee hip extension ~10 deg destinee Lower Extremity Muscle Strength Testing General Lower Extremity Strength WFL/Left,WFL/Right Gross Lower Extremity Strength L hip flexion 4+/5 R hip flexion 4+/5 destinee knee flexion/extension 5/5 unable to hold hip abduction test position destinee ~2/5 able to perform 10 glute bridge before loss of hip height Balance Assessment Time Up Go (TUG) Comments Initially: 16s without AD 09/28/21: 9s without AD 5 Time Sit to Stand 5 Time Sit to Stand Comments Initially: 22s, without the Query Text:Normative Data: If Greater use of UEs Than 15 Seconds, 74% Increase Risk for 09/28/21: 12s without the use of Recurrent Falls UEs Gait Assessment Ambulation Assistive Devices None Gait Pattern Antalgic Gait Gait Pattern Observed Decreased Stride Length - Left ,Trunk Lateral Lean - Right 2 Minute Walk 2 Minute Walk Test Comments Initially: 290ft (2.41ft/s) with wheeled walker 09/28/21: 400ft (3.33ft/s) without AD Stair Climbing Assessment Stair Climbing Comments use of single hand rail for balance, ascends and descends with a reciprocal pattern and without deviations Safety Assessment Factors Affecting Safety No Concerns General Exercise Exercise Description - reviewed and consolidated HEP Query Text:Record Sets, Reps, - educated in the benefit
--- NOTE | 2021-10-03 08:28 | STOPEVAL ---
SPEECH THERAPY REASSESSMENT AND DISCHARGE SUMMARY Thank you for referring Abbey Boggs to [facility] Patient was seen for 8 sessions of skilled Speech Therapy focusing on attention/recall and functional math for time and money. Goals were achieved and patient is being discharged from skilled Speech Therapy at this time. Please review, sign, date and return this plan of care ASHLEY. I agree with and certify that the following plan of care is medically necessary. Referring Physician Date Attending Provider: Erasmo Price Therapy Assessment Status Assessment Status Assessment Status Discharge Immediate Memory 90 Query Text:% Accuracy Recent Memory 100 Query Text:% Accuracy Remote Memory 100 Query Text:% Accuracy Prospective Memory 100 Query Text:% Accuracy Spatial/Environmental Orientation 100 Query Text:% Accuracy Overall Orientation and Memory Mild Deficits Orientation/Memory Comments Patient only forgot part of one three-worded item out of two items on one sentence. She recalled all other new information. Thought Organization Functional Math: Percent of Accuracy 0- 100 100 (%) Overall Thought Organization Ability No Impairment Auditory Processing and Retention Assessment Auditory Processing Complex Paragraphs ( 100 % Accuracy) Response Latency No Impairment ST Clinical Summary Clinical Summary ST Clinical Summary DISCHARGE SUMMARY/RE- ASSESSMENT Patient was seen for an Initial Evaluation and then six Speech Therapy treatments addressing attention/recall, and functional math. Patient reports that she feels certain things about her memory seem to be better, but then she was unable to express what she thought had improved. She states that she is more aware of the need to pay attention and also is more efficient about putting meals together. Daughter initially reported that she would call her mother to tell her she was coming to pick her up and she would arrive and mother/ patient had forgotten that daughter w
== END 2021-10-05 10:46 | disposition home or self-care (01) ==
LOC: ANHST 15:30
PROVIDERS: PCP Internal Medicine
DX: S72.111D Displaced fracture of greater trochanter of right femur, subsequent encounter for closed fracture with routine healing (principal); R26.9 Unspecified abnormalities of gait and mobility; I71.4 Abdominal aortic aneurysm, without rupture; M16.11 Unilateral primary osteoarthritis, right hip; R41.89 Other symptoms and signs involving cognitive functions and awareness; Z91.81 History of falling
CPT/HCPCS: 92507; 92523; 97110; 97112; 97161; 97165; 97530

== ENCOUNTER 2022-12-26 14:02 | Outpatient (CLI) | payer MEDICARE, OTHER, SELFPAY | END 2022-12-26 14:03 | disposition home or self-care (01) | PROVIDERS: PCP Internal Medicine; Visit Provider Internal Medicine | DX: H90.3 Sensorineural hearing loss, bilateral (principal) | CPT/HCPCS: 92557; 92567 ==

== ENCOUNTER 2023-03-16 09:15 | Outpatient (RCR) | payer MEDICARE, OTHER, SELFPAY | END 2023-03-16 23:59 | disposition home or self-care (01) | LOC: ANHAUDIO 09:15 | PROVIDERS: PCP Internal Medicine | DX: Z46.1 Encounter for fitting and adjustment of hearing aid (principal) | CPT/HCPCS: V5257 ==

== ENCOUNTER 2023-12-12 09:13 | Outpatient (CLI) | payer MEDICARE, OTHER, SELFPAY ==
--- NOTE | ~2023-12-12 | MR_ITS ---
EXAMINATION: MR lumbar spine wo con DATE: 12/12/2023 09:58 INDICATION: Lumbar radicular pain. Low back pain. TECHNIQUE: Magnetic resonance imaging (MRI) of the lumbar spine was performed without intravenous con trast. Sequences included sagittal T2-weighted FSE, sagittal T2-weighted FS FSE, sagittal T1-weighted FSE, and axial T2-weighted FSE. COMPARISON: Thoracic spine CT 11/29/2020 FINDINGS: There is 6 degrees levocurvature of cervicothoracic spine. L5 is a changes of distal segmen t. There is 3 mm retrolisthesis of T12 on L1 and L2 on L3 and 5 mm anterolisthesis of L3 on L4 and L4 and L5. There is mild chronic anterior wedging of multiple lower thoracic vertebral bodies. There is moderately decreased disc height at T12-L1 and severely decreased disc height from L1-L2 through L4- L5. There is ligamentum flavum hypertrophy at the disc levels from L1-L2 through L4-L5. The distal sp inal cord signal intensity is normal. The conus medullaris is at L1. The following disc levels are sp ecifically discussed: L1-L2: The disc is bulging. There is moderate bilateral facet joint osteoarthritis. There is mild destinee ateral neural foraminal stenosis. There is mild central canal stenosis. L2-L3: The disc is bulging. There is severe bilateral facet joint osteoarthritis. There is mild bilat eral neural foraminal stenosis. There is mild central canal stenosis. L3-L4: The disc is bulging. There is severe bilateral facet joint osteoarthritis. There is mild bilat eral neural foraminal stenosis. There is moderate central canal stenosis. L4-L5: The disc is bulging. There is severe bilateral facet joint osteoarthritis. There is mild right and moderate left neural foraminal stenosis. There is severe central canal stenosis. L5-S1: The disc does not extend beyond the endplate margin. There is mild bilateral facet joint hyper trophy. There is mild left neural foraminal stenosis. There is no central canal stenosis. IMPRESSION: 1. Severe lumbar spondylosis. Reviewed, dictated and finalized at location A.
== END 2023-12-12 09:14 | disposition home or self-care (01) ==
LOC: GOSHIMG 09:15
PROVIDERS: PCP Internal Medicine; Visit Provider Nurse Practitioner Family
DX: M43.06 Spondylolysis, lumbar region (principal)
CPT/HCPCS: 72148